=== PATIENT | female | born 1955 | race Caucasian/White ===

== ENCOUNTER → 2018-02-04 | Day surgery (SDC) | payer OTHER ==
--- NOTE | 2018-02-06 14:12 | OP ---
DATE OF OPERATION: 02/04/2018 PREOPERATIVE DIAGNOSIS: Right axillary adenopathy. POSTOPERATIVE DIAGNOSIS: Right axillary adenopathy. PROCEDURE: Right axillary lymph node ultrasound-guided core biopsy and clip placement. ANESTHESIA: Local. ATTENDING SURGEON: Mariana Lawrence MD ESTIMATED BLOOD LOSS: Minimal. COMPLICATIONS: None. PROCEDURE: The patient was made aware of the risks and benefits of the procedure intended. She was placed in a supine position and under sterile conditions with 1% lidocaine for local anesthesia a small wiley was made in the skin. Using a 13-gauge suction biopsy device via an inferolateral approach under ultrasound guidance, multiple cores were obtained and submitted to pathology. Likewise under ultrasound guidance an 18-gauge open core HydroMARK clip was placed into the biopsy region. Well tolerated by patient. Steri-Strips and sterile bandage were then applied. They will contact the patient with the results. MARIANA LAWRENCE M.D. [id number]
--- NOTE | 2018-02-08 12:24 | PATH ---
Surgical Pathology Report Patient Name: BHAVIN POSEY [facility]. Rec. #: [id number] /Age/Gender: 1955 (Age: 63) / F Account: [id number] Location: Taken: 02/04/2018 Received: 02/04/2018 Reported: 02/08/2018 Physicians: David Zuniga M.D. Specimen(s) Received RIGHT AXILLARY LYMPH NODE BIOPSY Clinical History 2016 status post right breast surgery for cancer Final Diagnosis Lymph node, right axilla, core biopsy: Benign lymph node tissue showing reactive FOLLICULAR HYPERPLASIA. Negative for metastatic carcinoma. (see note) Note: Cytokeratin (AE1/3) immunostain performed at [facility] is negative; this finding supports the diagnosis. If lymphadenopathy persists and/or clinical suspicion remains high, excisional biopsy may be helpful. Electronically Signed Aurelia Tripp M.D. Gross Description Received in formalin labeled "right axillary lymph node biopsy," is a 2.5 x 1.5 x 0.2 cm aggregate of causey-yellow, irregular to cylindrical portions of fibroadipose tissue. The formalin is filtered and the specimen is entirely submitted in one cassette. Time to formalin fixation: < 1 minute Total formalin fixation time: Approximately 9 hours. 02/04/201802/04/2018
== END | disposition home or self-care (01) ==
LOC: FRADUS-SUR 08:17
PROVIDERS: ATTEND Surgery Surgical Oncology
PROC: 07B53ZX Excision of Right Axillary Lymphatic, Percutaneous Approach, Diagnostic (ICD-10-PCS; principal; 2018-02-04)
DX: R59.0 Localized enlarged lymph nodes (principal); D36.0 Benign neoplasm of lymph nodes; Z85.3 Personal history of malignant neoplasm of breast
CPT/HCPCS: 19083; 38505; 87899; 88307-TC; A4648

== ENCOUNTER 2023-06-24 10:27 | Emergency (ER) | payer OTHER, MEDICARE ==
[2023-06-24 12:20] VITALS: BP 109/77; PULSE 95; RESP 18; TEMP 97.7; BMI 25.2
== END 2023-06-24 13:49 | disposition home or self-care (01) ==
LOC: FER 10:27
DX: Z04.3 Encounter for examination and observation following other accident (principal); W06.XXXA Fall from bed, initial encounter
CPT/HCPCS: 70450-TC; 99284-25